=== PATIENT | female | born 2000 | race Caucasian/White ===

== ENCOUNTER 2020-12-07 04:12 | Outpatient (CLI) | payer MEDICAID ==
[~2020-12-07] VITALS: Ht 165.1 cm; Wt 110.0 kg
[~2020-12-07 04:12] MED LIST: IBUP-1222 PO; ONDA4TAB7 PO; PREN1TAB60 PO
[2020-12-07 04:34] VITALS: BP 130/75
[2020-12-08] MEDS ORDERED: IBUP-1222 PO (15:31)
== END 2020-12-07 06:45 | disposition home or self-care (01) ==
LOC: LDOP 04:12
PROVIDERS: ATTEND Obstetrics & Gynecology
DX: O26.893 Other specified pregnancy related conditions, third trimester (principal); R10.9 Unspecified abdominal pain; Z3A.39 39 weeks gestation of pregnancy
CPT/HCPCS: 59025; 89060; Q0114

== ENCOUNTER 2020-12-07 11:21 | Inpatient (IN) | payer MEDICAID ==
[~2020-12-07] VITALS: Ht 165.1 cm; Wt 110.0 kg
[2020-12-07] MEDS ORDERED: OXYTOCIN 30U/ 0.9% NaCL 500ML 500 ML IV ONE (11:38)
[2020-12-07] MEDS ORDERED: FENTANYL PF 100 MCG/2ML IVPush PRN (12:00)
[2020-12-07] MEDS ORDERED: FENTANYL PF 100 MCG/2ML IV PRN (12:00)
[2020-12-07] MEDS ORDERED: D5%-LACTATED RINGERS 1,000 ML IV SCH (12:00)
[2020-12-07] MEDS ORDERED: TERBUTALINE 1 MG/ML, 1ML IVPush PRN (12:00)
[2020-12-07] MEDS ORDERED: TERBUTALINE 1 MG/ML, 1ML SQ PRN (12:00)
[2020-12-07] MEDS ORDERED: CALCIUM CARBONATE 500 MG TAB.CHEW PO PRN (12:00)
[2020-12-07] MEDS: LACTATED RINGERS 1,000 ML IV SCH ×2 (12:00→12:54)
[2020-12-07] MEDS ORDERED: ONDANSETRON 2MG/ML, 2ML IVPush PRN (12:00)
[2020-12-07 12:05] LABS: BASOPHILS % (AUTO) 0 % (0-1); EOSINOPHILS % (AUTO) 0 % (1-7); LYMPHOCYTES % (AUTO) 8 % (22-44); MEAN CORPUSCULAR HEMOGLOBIN 29.3 pg (27.0-34.8); MEAN PLATELET VOLUME 9.7 fL (7.4-10.4); MONOCYTES % (AUTO) 3 % (2-9); NEUTROPHILS % (AUTO) 88 % (42-75); PLATELET COUNT 287 x10^3/uL (130-400); RED BLOOD COUNT 4.71 x10^6/uL (3.82-5.3); RED CELL DISTRIBUTION WIDTH 13.3 % (9.6-15.2)
[2020-12-07 12:11] LABS: MD NO
[2020-12-07] MEDS ORDERED: LIDOCAINE 1%, 20ML ONE (12:42)
[2020-12-07] MEDS ORDERED: MISOPROSTOL 200 MCG TABLET ONE (12:43)
[2020-12-07] MEDS ORDERED: NEWBORN KIT ONE (12:44)
[2020-12-07] MEDS ORDERED: MISOPROSTOL 200 MCG TABLET PR PRN (13:30)
[2020-12-07] MEDS ORDERED: DOCUSATE 100 MG CAPSULE PO PRN (13:30)
[2020-12-07] MEDS ORDERED: ACETAMINOPHEN 325 MG TABLET PO PRN ×2 (13:30)
[2020-12-07] MEDS ORDERED: ONDANSETRON 2MG/ML, 2ML IV PRN (13:30)
[2020-12-07] MEDS ORDERED: SIMETHICONE 80 MG CHEW TAB PO PRN (13:30)
[2020-12-07] MEDS: OXYTOCIN 30U/ 0.9% NaCL 500ML 500 ML IV SCH ×3 (13:30→23:30)
[2020-12-07] MEDS ORDERED: IBUPROFEN 600 MG TABLET PO PRN (13:30)
[2020-12-07] MEDS ORDERED: OXYcodone/APAP 5/325MG TABLET PO PRN ×2 (13:30)
[2020-12-07] MEDS ORDERED: DIPH,PERTUSS(ACELL),TET VAC/PF NC IM-VACC PRN (13:30)
[2020-12-07] MEDS ORDERED: RHOGAM FROM BLOOD BANK 1 NOTE EA IM/IV ONE (13:30)
[2020-12-07] MEDS ORDERED: MAGNESIUM HYDROXIDE 8%, 30ML UDC PO PRN (13:30)
[2020-12-07] MEDS ORDERED: LACTATED RINGERS 1,000 ML IVBOLUS PRN (14:00)
[2020-12-07] MEDS ORDERED: EPHEDRINE 50 MG/ML, 1ML IVPush PRN (14:00)
[2020-12-07] MEDS ORDERED: FENTANYL/BUPIV./NS/PF 250 ML EPIDCONT SCH (14:00)
[2020-12-07] MEDS ORDERED: NALOXONE 0.4 MG/ML, 1ML IVPush PRN (14:00)
[2020-12-07] MEDS ORDERED: LACTATED RINGERS 1,000 ML IV SCH (14:00)
[2020-12-07 16:15] VITALS: BP 114/67
[2020-12-07 20:00] VITALS: BP 119/78
[2020-12-08 00:39] VITALS: BP 99/59
[2020-12-08 04:00] VITALS: BP 101/61
[2020-12-08 08:15] VITALS: BP 110/71
[2020-12-08] MEDS ORDERED: PRENATAL VIT/IRON/FA 1 EACH TABLET PO SCH (09:00)
[2020-12-08 12:07] VITALS: BP 118/74
[2020-12-08 15:28] VITALS: BP 129/81
[2020-12-08] MEDS ORDERED: IBUP-1222 PO (15:31)
== END 2020-12-08 16:51 | disposition home or self-care (01) | DRG 807 ==
LOC: LDOP 11:21 → UNDOADMIN 11:33 → LDIP 11:33 → 2NW 15:55 → EDSTATUS 12-08 11:18
PROVIDERS: ADMIT Obstetrics & Gynecology; ATTEND Obstetrics & Gynecology
PROC: 10E0XZZ Delivery of Products of Conception, External Approach (ICD-10-PCS; principal; 2020-12-07)
PROC: 10907ZC Drainage of Amniotic Fluid, Therapeutic from Products of Conception, Via Natural or Artificial Opening (ICD-10-PCS; 2020-12-07)
DX: O69.81X0 Labor and delivery complicated by cord around neck, without compression, not applicable or unspecified (principal); Z37.0 Single live birth; Z3A.40 40 weeks gestation of pregnancy; Z23 Encounter for immunization; Z20.822 Contact with and (suspected) exposure to COVID-19
CPT/HCPCS: 36415; 85025; 86592; 86850; 86900; 87635; G0378; J3010; J2590; J7120

== ENCOUNTER 2021-03-21 09:31 | Emergency (ER) | payer MEDICAID ==
[~2021-03-21] VITALS: Ht 165.1 cm; Wt 101.0 kg
--- NOTE | 2021-03-21 10:30 | NUR ---
ERP, Rere to bedside for eval.
[2021-03-21] MEDS ORDERED: ONDANSETRON 4 MG TABLET PO ONE (11:00)
[2021-03-21 11:11] LABS: BASOPHILS % (AUTO) 1 % (0-1); EOSINOPHILS % (AUTO) 10 % (1-7); LYMPHOCYTES % (AUTO) 21 % (22-44); MEAN CORPUSCULAR HEMOGLOBIN 29.5 pg (27.0-34.8); MEAN CORPUSCULAR HGB CONC 33.7 g/dL (32.4-35.8); MONOCYTES % (AUTO) 10 % (2-9); NEUTROPHILS % (AUTO) 59 % (42-75); PLATELET COUNT 321 x10^3/uL (130-400); RED BLOOD COUNT 5.11 x10^6/uL (3.82-5.3); RED CELL DISTRIBUTION WIDTH 13.4 % (9.6-15.2)
[2021-03-21 11:23] LABS: ALBUMIN 3.2 g/dL (3.4-5.0); CALCIUM 8.6 mg/dL (8.5-10.1); CHLORIDE 108 mmol/L (98-107)
[2021-03-21 11:32] LABS: ANION GAP 4 mmol/L (5-15)
[2021-03-21 11:39] LABS: BILIRUBIN,TOTAL 0.4 mg/dL (0.2-1.0); CREATININE 0.83 mg/dL (0.55-1.02)
[2021-03-21 11:40] LABS: ALANINE AMINOTRANSFERASE 17 U/L (12-78); ALKALINE PHOSPHATASE 78 U/L (45-117); TOTAL PROTEIN 7.2 g/dL (6.4-8.2)
== END 2021-03-21 13:06 | disposition home or self-care (01) ==
LOC: ED 10:16
DX: J02.8 Acute pharyngitis due to other specified organisms (principal); B34.9 Viral infection, unspecified; R19.7 Diarrhea, unspecified; R11.10 Vomiting, unspecified
CPT/HCPCS: 36415; 71045; 80053; 84703; 85025; 87081; 87880; 99284